=== PATIENT | female | born 1965 | race Caucasian/White ===

== ENCOUNTER 2019-05-10 07:34 | Emergency (ER) | payer BC ==
[2019-05-10] MEDS ORDERED: ONDANSETRON HCL INJ/PF 4 MG/2 ML SDV IV ONE (08:19)
[2019-05-10] MEDS ORDERED: NORMAL SALINE 1000 ML 1,000 ML IV ONE (08:20)
[2019-05-10] MEDS ORDERED: MAG HYDROX/AL HYDROX/SIMETH SUSP 30 ML UDCUP PO ONE (08:20)
[2019-05-10] MEDS ORDERED: METOCLOPRAMIDE HCL ORAL SOLN 10 MG/10 ML UDCUP PO ONE (08:20)
[2019-05-10] MEDS ORDERED: LIDOCAINE 2% VISCOUS SOLN 20 ML UDCUP PO ONE (08:20)
--- NOTE | 2019-05-10 08:25 | ER Document Report ---
ED GI/ - General Chief Complaint: Abdominal Pain Stated Complaint: NAUSEA,ABDOMINAL PAIN Time Seen by Provider: 05/10/19 08:06 Information source: Patient Notes: Ms. Reeder is a 53 yo PMH GERD on Prilosec presenting to the ED for abdominal pain. Patient states that she was woken up suddenly from sleep with left-sided chest pain as well as mid epigastric abdominal pain. She states that she had significant nausea and 4 episodes of bilious vomiting. She has had 2 normal bowel movements this morning that were formed brown stool and nonbloody. Patient endorses subjective chills without any fevers. She denies any shortness of breath or cough. She states that the left-sided chest pain was pressure-like in nature. She denies any known ill contacts or recent travel. No new foods. Patient denies any prolonged immobilization or recent travel. She is an ex- smoker quit over 6 years ago. She smoked for about 20 years, 1 pack/day. She states that her brother and parents both have hypertension. No known heart attacks at a young age. No lower extremity edema. Patient adds that she is a G4, P3. She states that she had 2 children, boy and a girl at a young age and then had her tubes tied. She then had a tubal reversal. She had a miscarriage and then had a one viable . She was told that her tubes have since atrophied. No other abdominal surgeries such as cholecystectomy or appendectomy. She states she had sloppy joes last night for dinner. TRAVEL OUTSIDE OF THE [place] IN LAST 30 DAYS: No - Related Data Allergies/Adverse Reactions: acetaminophen [From Tylenol] Allergy (Verified 05/10/19 07:38) Home Medications: vitamins Past Medical History - General Information source: Patient - Social History Smoking Status: Unknown if Ever Smoked Chew tobacco use (# tins/day): No Frequency of alcohol use: Occasional Drug Abuse: None Family History: Hypertension Patient has suicidal ideation: No Patient has homicidal ideation: No Review of Systems - Review of Systems Constitutional: See HPI EENT: No symptoms reported Cardiovascular: See HPI Respiratory: No symptoms reported Gastrointestinal: See HPI Genitourinary: No symptoms reported Female Genitourinary: No symptoms reported Musculoskeletal: No symptoms reported Skin: No symptoms reported Hematologic/Lymphatic: No symptoms reported Neurological/Psychological: No symptoms reported Physical Exam - Vital signs Vitals: Resp 13 05/10/19 07:55 Interpretation: Normal - General General appearance: Appears well, Alert - HEENT Head: Normocephalic, Atraumatic Eyes: Normal Pupils: PERRL - Respiratory Respiratory status: No respiratory distress Chest status: Nontender Breath sounds: Normal Chest palpation: Normal - Cardiovascular Rhythm: Regular Heart sounds: Normal auscultation Murmur: No - Abdominal Inspection: Normal Distension: No distension Bowel sounds: Normal Tenderness: Tender - Epigastric tenderness to palpation. No: McBurney's point, Jamison's sign, Guarding, Rebound Organomegaly: No organomegaly - Back Back: Normal, Nontender - Extremities General upper extremity: Normal inspection, Nontender, Normal color, Normal ROM, Normal temperature General lower extremity: Normal inspection, Nontender, Normal color, Normal ROM, Normal temperature, Normal weight bearing. No: Henok's sign - Neurological Neuro grossly intact: Yes Cognition: Normal Orientation: AAOx4 [place] Coma Scale Eye Opening: Spontaneous Daniel Coma Scale Verbal: Oriented Daniel Coma Scale Motor: Obeys Commands [place] Coma Scale Total: 15 Speech: Normal Motor strength normal: LUE, RUE, LLE, RLE Sensory: Normal - Psychological Associated symptoms: Normal affect, Normal mood - Skin Skin Temperature: Warm Skin Moisture: Dry Skin Color: Normal Course - Re-evaluation Re-evalutation: She is generally well-appearing and nontoxic. Initial vitals notable for mild bradycardia at 59. EKG nonischemic. Differential diagnosis includes angina, GERD, gastritis, ACS, cholecystitis, symptomatic cholelithiasis. 05/10/19 08:36 Patient ordered for Zofran for nausea as well as IV fluids. Patient also ordered for GI cocktail. Factors for ACS include age, previous smoker. No other significant risk factors. Troponin pending although less likely. Patient does endorse having eaten sloppy [employer] last night with tomato sauce, could be gastritis/GERD exacerbation. Will reassess pending antiemetic, GI cocktail and remainder of labs as well as chest x-ray and ultrasound. No improvement after GI cocktail. However patient endorsing ongoing pain. Ordered for a one-time dose of morphine. 05/10/19 15:26 CBC does not show significant leukocytosis or left shift. MCV is low concerning for microcytic anemia however H&H is stable. CMP within normal limits. UA unremarkable. Right upper quadrant ultrasound does show evidence of gallstones as well as mildly dilated bile ducts without any evidence of cholecystitis such as thickened wall or pericholecystic fluid. Initial troponin is negative. Chest x-ray also within normal limits. Patient's only risk factors for ACS include age, as well as previous tobacco abuse. Plan to obtain repeat troponin. Troponin negative. Patient given famotidine IV. Discharged with famotidine in addition to her omeprazole/Prilosec. Patient recommended to avoid foods high in acidity and stick to a bland diet. Patient also recommended to follow-up with her primary care doctor for possible symptomatic cholelithiasis. Recommended she get an outpatient referral for surgery for possible elective cholecyste ctomy. - Vital Signs Vital signs: Temp Pulse Resp BP Pulse Ox 97.8 F 17 159/74 H 98 05/10/19 08:00 05/10/19 13:01 05/10/19 13:01 05/10/19 13:01 - Laboratory Result Diagrams: 05/10/19 09:30 05/10/19 09:30 Laboratory results interpreted by me: 05/10/19 05/10/19 09:30 09:30 RBC 5.68 H MCV 72 L MCH 22.7 L MCHC 31.5 L RDW 16.5 H Lymph % (Auto) 9.0 L Absolute Neuts (auto) 8.3 H Seg Neutrophils % 85.9 H Creatinine 0.50 L Glucose 154 H Calcium 11.0 H - EKG Interpretation by [facility] EKG shows normal: Sinus rhythm - inverted T-waves in III and V1, [place], Intervals, QRS Complexes Rate: Normal, Bradycardia Rhythm: NSR, Other - Twave inversion in III and V1 When compared to previous EKG there are: Previous EKG unavailable Discharge - Discharge Clinical Impression: Gastritis Condition: Good Disposition: HOME, SELF-CARE Instructions: Abdominal Pain ([facility]), Gallbladder Disease ([facility]), Gastritis ([facility]), Reflux Disease (GERD) ([facility]) Additional Instructions: I would recommend that you avoid any foods high in acidity such as tomatoes, strawberries, or any citrus products. I would also recommend that you try a bland diet for the next day or 2. Use the famotidine in addition to your Prilosec. Follow-up with your primary care doctor as needed. You have been provided with a care in clinic for follow-up. If you notice that your pain is worse with fatty meals, you could have symptomatic cholelithiasis (AKA symptomatic gallstones) which could be treated with an outpatient elective removal of the gallbladder. This would require referral from her primary care doctor. If you develop worsening pain, are unable to keep down food or drink, or develop a fever, please return to the ED for further evaluation. Prescriptions: Famotidine 40 mg PO DAILY #30 tablet
--- NOTE | 2019-05-10 08:40 | EKG REPORT ---
SEVERITY:- ABNORMAL ECG - SINUS RHYTHM PROBABLE LEFT VENTRICULAR HYPERTROPHY NONSPECIFIC ST-T CHANGES- INFERIOR LEADS : Confirmed by: Bayron Masterson MD 10-May-2019 08:40:26
--- NOTE | 2019-05-10 09:10 | RADIOLOGY REPORT (SQ) ---
EXAM DESCRIPTION: CHEST 2 VIEWS COMPLETED DATE/TIME: 05/10/2019 8:38 am REASON FOR STUDY: Chest pain COMPARISON: None. EXAM PARAMETERS: NUMBER OF VIEWS: two views TECHNIQUE: Digital Frontal and Lateral radiographic views of the chest acquired. RADIATION DOSE: NA LIMITATIONS: none FINDINGS: LUNGS AND PLEURA: No opacities, masses or pneumothorax. No pleural effusion. MEDIASTINUM AND HILAR STRUCTURES: No masses or contour abnormalities. HEART AND VASCULAR STRUCTURES: Heart normal size. No evidence for failure. BONES: No acute findings. HARDWARE: None in the chest. OTHER: No other significant finding. IMPRESSION: NO ACUTE RADIOGRAPHIC FINDING IN THE CHEST. TECHNICAL DOCUMENTATION: JOB ID: [id number] [employer]- All Rights Reserved Reading location - IP/workstation name: [email or web address]
--- NOTE | 2019-05-10 09:21 | RADIOLOGY REPORT (SQ) ---
EXAM DESCRIPTION: U/S ABDOMEN LIMITED W/O DOP COMPLETED DATE/TIME: 05/10/2019 9:06 am REASON FOR STUDY: nausea, vomiting abd pain COMPARISON: None. TECHNIQUE: Dynamic and static grayscale images acquired of the abdomen and recorded on PACS. Aryano jim selected color Doppler and spectral images recorded. LIMITATIONS: None. FINDINGS: PANCREAS: No masses. Visualized pancreatic duct normal caliber. LIVER: The liver measures 19.5 cm in length, hepatomegaly. Fatty liver. Focal area of fatty sparin g adjacent to the gallbladder fossa. LIVER VASCULATURE: Normal directional flow of the main portal vein and hepatic veins. GALLBLADDER: Gallstones. The gallbladder wall measures 2.1 mm, normal wall thickness. No pericholecy stic fluid. ULTRASOUND-DETECTED COLEMAN'S SIGN: Negative. INTRAHEPATIC DUCTS AND COMMON DUCT: CBD measures 7.4 mm in diameter, and is mildly dilated. The intr ahepatic ducts normal caliber. No filling defects. INFERIOR VENA CAVA: Normal flow. AORTA: No aneurysm. RIGHT KIDNEY: The right kidney measures 10.5 cm in length, normal size. Normal echogenicity. No sunny id or suspicious masses. No hydronephrosis. No calcifications. PERITONEAL AND RIGHT PLEURAL SPACE: No ascites or effusions. OTHER: No other significant findings. IMPRESSION: 1. Gallstones. 2. The common bile duct is mildly dilated. 3. Fatty liver. Hepatomegaly. TECHNICAL DOCUMENTATION: JOB ID: [id number]- All Rights Reserved Reading location - IP/workstation name: [email or web address]
[2019-05-10 09:43] LABS: ABSOLUTE BASOPHILS # (AUTO) 0.1 10^3/uL (0.0-0.2); ABSOLUTE LYMPHOCYTES (AUTO) 0.9 10^3/uL (0.5-4.7); ABSOLUTE MONOCYTES (AUTO) 0.4 10^3/uL (0.1-1.4); ABSOLUTE NEUT (AUTO) 8.3 10^3/uL (1.7-8.2); BASOPHILS % (AUTO) 0.7 % (0-2); EOSINOPHILS % (AUTO) 0.2 % (0-6); HEMATOCRIT 40.9 % (36.0-47.0); HEMOGLOBIN 12.9 g/dL (12.0-15.5); MEAN CORPUSCULAR HEMOGLOBIN 22.7 pg (27.0-33.4); MEAN CORPUSCULAR HGB CONC 31.5 g/dL (32.0-36.0); MEAN CORPUSCULAR VOLUME 72 fl (80-97); MONOCYTES % (AUTO) 4.2 % (3-13); PLATELET COUNT 211 10^3/uL (150-450); RED BLOOD COUNT 5.68 10^6/uL (3.72-5.28); RED CELL DISTRIBUTION WIDTH 16.5 % (11.5-14.0); SEGMENTED NEUTROPHILS % (AUTO) 85.9 % (42-78); TOTAL CELLS COUNTED % (AUTO) 100 %; WHITE BLOOD COUNT 9.7 10^3/uL (4.0-10.5)
[2019-05-10 10:10] LABS: ALBUMIN 4.7 g/dL (3.5-5.0); ALKALINE PHOSPHATASE 97 U/L (38-126); ANION GAP 11 (5-19); ASPARTATE AMINO TRANSFERASE 36 U/L (14-36); BILIRUBIN,DIRECT 0.1 mg/dL (0.0-0.4); BILIRUBIN,TOTAL 0.6 mg/dL (0.2-1.3); BLOOD UREA NITROGEN 17 mg/dL (7-20); CARBON DIOXIDE 25 mmol/L (22-30); CHLORIDE 103 mmol/L (98-107); CREATINE KINASE 63 U/L (30-135); GLUCOSE 154 mg/dL (75-110); POTASSIUM 4.7 mmol/L (3.6-5.0); TOTAL PROTEIN 7.6 g/dL (6.3-8.2)
[2019-05-10 10:20] LABS: CREATINE KINASE MB 1.42 ng/mL (<4.55)
[2019-05-10 10:23] LABS: TROPONIN I < 0.012 ng/mL
[2019-05-10] MEDS ORDERED: MORPHINE SULFATE 10 MG/ML INJ IV ONE (10:36)
[2019-05-10] MEDS ORDERED: FAMOTIDINE INJ/PF 20 MG/2 ML SDV IV ONE (13:32)
[2019-05-10 14:12] VITALS: BP 159/74
== END 2019-05-10 14:10 | disposition home or self-care (01) ==
LOC: ER 07:34
DX: K29.70 Gastritis, unspecified, without bleeding (principal); R07.9 Chest pain, unspecified; R10.13 Epigastric pain; R11.0 Nausea; Z88.6 Allergy status to analgesic agent
CPT/HCPCS: 93005; 99284; 96361; 96374; 96375; 36415; 82553; 82550; 83690; 85025; 80053; 84484; 71046; 76705; 93010; J3490; J2270; J2405; J7030; S0028